=== PATIENT | male | born 1970 | race Caucasian/White ===

== ENCOUNTER 2017-08-26 19:32 | Emergency (ER) | payer BC, MEDICAID ==
--- NOTE | 2017-08-26 20:25 | ED Physician Documentation ---
PD HPI CHEST PAIN - Stated complaint Stated Complaint: CP/SOA/ L ARM NUMB - Chief complaint Chief Complaint: Cardiac - History obtained from History obtained from: Patient, Family - History of Present Illness Timing - onset: Today Timing - details: Gradual onset, Still present, Intermittant Quality: Pressure Radiation: Left upper extremity Worsened by: Inspiration. No: Exertion Similar symptoms before: Has not had sx before Recently seen: Not recently seen - Additional information Additional information: Patient is a 47 year old male with no significant past medical history who is presenting to the emergency department for chest pain. patinet states that earlier in the day the pain started in his throat and he was having difficulty swallowing. Patient states that the pain proceeded downwards to his chest and epigastric region. Patient states that it is slightly worse with breathing but denies any exertional component. Review of Systems Constitutional: denies: Fever, Chills Eyes: reports: Reviewed and negative Throat: reports: Sore throat Cardiac: reports: Chest pain / pressure. denies: Palpitations Respiratory: denies: Cough GI: reports: Abdominal Pain, Nausea. denies: Vomiting : denies: Dysuria, Frequency Neurologic: denies: Generalized weakness, Focal weakness Immunocompromised: denies: Immunocompromised PD PAST MEDICAL HISTORY - Past Medical History Cardiovascular: None Respiratory: Pneumonia, Other Neuro: Other Endocrine/Autoimmune: None GI: Diverticulitis : None HEENT: Chronic vision loss Psych: None Musculoskeletal: None Derm: None Other Past Medical History: Trigeminal neuralgia - Past Surgical History Past Surgical History: Yes General: Appendectomy - Present Medications Home Medications: Ambulatory Orders Medication Instructions Recorded Confirmed Ibuprofen [Advil] 2 mg PO DAILY 11/17/14 12/03/14 - Allergies Allergies/Adverse Reactions: Allergies Allergy/AdvReac Type Severity Reaction Status Date / Time Lvedgfl-Vhi-Ith Reductase AdvReac Unknown Verified 11/17/14 23:08 Inhibitor nakia AdvReac Unknown Unknown Uncoded 11/30/14 14:25 - Social History Does the pt smoke?: No Smoking Status: Never smoker Does the pt drink ETOH?: Yes Does the pt have substance abuse?: No - Immunizations Immunizations are current?: No - POLST Patient has POLST: No PD ED PE NORMAL - Vitals Vital signs reviewed: Yes - General General: Alert and oriented X 3 - Cardiac Cardiac: RRR, No murmur - Respiratory Respiratory: No respiratory distress, Clear bilaterally - Abdomen Abdomen: Soft, Non distended - Derm Derm: Normal color, Warm and dry - Extremities Extremities: No deformity, No tenderness to palpate - Neuro Neuro: Alert and oriented X 3 Eye Opening: Spontaneous Motor: Obeys Commands Verbal: Oriented GCS Score: 15 PD ED PE EXPANDED - General General: Anxious Results - Vitals Vitals: Vital Signs - 24 hr 08/26/17 19:41 Temperature 36.2 C L Heart Rate 103 H Respiratory 25 H Rate Blood Pressure 173/93 H O2 Saturation 98 Oxygen O2 Source Room air - EKG (time done) 1945 Rate: Rate (enter#) (96) Rhythm: NSR [place]: Normal Intervals: Normal ID QRS: Poor R wave progression Compare to prior EKG: Old EKG unavailable - Labs Labs: Laboratory Tests 08/26/17 08/26/17 08/26/17 20:05 20:21 20:21 WBC 11.8 H RBC 4.82 Hgb 15.6 Hct 44.3 MCV 91.8 MCH 32.3 H MCHC 35.2 RDW 13.1 Plt Count 169 MPV 8.0 Neut # (Auto) 9.9 H Lymph # (Auto) 1.0 L [place] # (Auto) 0.8 Eos # (Auto) 0.0 Baso # (Auto) 0.0 Absolute Nucleated RBC 0.00 Nucleated RBC % 0.0 D-Dimer < 200.0 L Sodium 137 Potassium 3.5 Chloride 105 Carbon Dioxide 22 Anion Gap 10.0 BUN 13 Creatinine 0.9 Estimated GFR (MDRD) 90 Glucose 111 H Calcium 9.3 Total Bilirubin 0.7 AST 31 ALT 64 H Alkaline Phosphatase 75 Troponin I B-Natriuretic Peptide Total Protein 8.3 H Albumin 4.3 Globulin 4.0 Albumin/Globulin Ratio 1.1 Lipase 32 08/26/17 08/26/17 20:21 20:21 WBC RBC Hgb Hct MCV MCH MCHC RDW Plt Count MPV Neut # (Auto) Lymph # (Auto) Cole # (Auto) Eos # (Auto) Baso # (Auto) Absolute Nucleated RBC Nucleated RBC % D-Dimer Sodium Potassium Chloride Carbon Dioxide Anion Gap BUN Creatinine Estimated GFR (MDRD) Glucose Calcium Total Bilirubin AST ALT Alkaline Phosphatase Troponin I < 0.04 B-Natriuretic Peptide 5 Total Protein Albumin Globulin Albumin/Globulin Ratio Lipase PD MEDICAL DECISION MAKING - ED course Complexity details: reviewed old records, reviewed results, re-evaluated patient , considered differential, d/w patient, d/w family ED course: Patient was seen and examined at bedside. ekg was performed and was within normal limits. IV access was gained and labs were drawn. chest x-ray was performed and was negative. Patient was treated with pepcid, maalox and viscous lidocaine with good relief. Patient's diagnostics including troponin and d-dimer were all negative. patient had a HEART score of 2 and was stable for discharge with outpatient follow up. - Sepsis Event Vital Signs: Vital Signs - 24 hr 08/26/17 19:41 Temperature 36.2 C L Heart Rate 103 H Respiratory 25 H Rate Blood Pressure 173/93 H O2 Saturation 98 Oxygen O2 Source Room air Departure - Departure Disposition: 01 Home, Self Care Clinical Impression: Atypical chest pain Condition: Good Instructions: ED Chest Pain NonCardiac Follow-Up: Kori Rodriguez PA-C [Primary Care Provider] - Within 3 Days Comments: Your diagnostics today were within normal limits. there are no indications that your symptoms are cardiac or pulmonary in nature. it is difficult to say what is causing your symptoms exactly, but it could be GERD or chest wall pain. You should follow up with your doctor if your symptoms persist. you should return to the emergency department at any time for new, worsening or uncontrollable symptoms.
[2017-08-26 20:29] LABS: BASOPHILS % (AUTO) 0.3 %; EOSINOPHILS % (AUTO) 0.2 %; HGB - HEMOGLOBIN 15.6 g/dL (14.0-18.0); LYMPHOCYTES % (AUTO) 8.4 %; MEAN CORPUSCULAR HEMOGLOBIN 32.3 pg (27.0-31.0); MEAN CORPUSCULAR HGB CONC 35.2 g/dL (32.0-36.0); MEAN CORPUSCULAR VOLUME 91.8 fL (80.0-94.0); MONOCYTES # (AUTO) 0.8 10^3/uL (0.0-1.0); MONOCYTES % (AUTO) 7.2 %; NEUTROPHILS # (AUTO) 9.9 10^3/uL (1.5-6.6); NEUTROPHILS % (AUTO) 83.9 %; PLT - PLATELET COUNT 169 10^3/uL (130-450); RED BLOOD COUNT 4.82 10^6/uL (4.70-6.10); RED CELL DISTRIBUTION WIDTH 13.1 % (12.0-15.0); WHITE BLOOD COUNT 11.8 x10^3/uL (4.8-10.8)
[2017-08-26 20:38] LABS: ALBUMIN 4.3 g/dL (3.2-5.5); ALBUMIN/GLOBULIN RATIO 1.1 (1.0-2.2); BILIRUBIN,TOTAL 0.7 mg/dL (0.2-1.0); CALCIUM 9.3 mg/dL (8.5-10.3); CREATININE 0.9 mg/dL (0.6-1.2); TOTAL PROTEIN 8.3 g/dL (6.7-8.2)
[2017-08-26] MEDS ORDERED: LIDOCAINE VISCOUS 2% 15 ML UDC MM STA (20:46)
[2017-08-26] MEDS ORDERED: MAG HYDROX/AL HYDROX/SIMETH 30 ML UDC PO STA (20:46)
[2017-08-26] MEDS ORDERED: FAMOTIDINE 20 MG TABLET PO STA (20:46)
[2017-08-26] MEDS ORDERED: SODIUM CHLORIDE 0.9% 1,000 ML IV ONE (20:58)
--- NOTE | 2017-08-26 21:20 | XRAY Report ---
Procedure Date: 08/26/2017 Accession Number: [id number] / [id number] Procedure: XR - Chest 2 View X-Ray CPT Code: 47042 FULL RESULT: EXAM: CHEST RADIOGRAPHY EXAM DATE: 08/26/2017 08:48 PM. CLINICAL HISTORY: Chest pain. COMPARISON: 11/18/2014 chest x-ray, abdomen CT. TECHNIQUE: 2 views. FINDINGS: Lungs/Pleura: There is an irregular, nodular right infrahilar opacity stable since 10/04/[address] most likely secondary to scarring. Otherwise no acute airspace disease. No pleural effusion or pneumothorax. Mediastinum: Heart and mediastinal contours are unremarkable. Other: None. IMPRESSION: Stable right infrahilar opacity most likely secondary to scarring. Otherwise no acute airspace disease. RADIA
[2017-08-26 21:59] VITALS: BP 131/81
== END 2017-08-26 21:58 | disposition home or self-care (01) ==
LOC: ED 19:32
DX: R07.89 Other chest pain (principal)
CPT/HCPCS: 36415; 71046; 80053; 83690; 83880; 84484; 85025; 85379; 93005; 96360; 99283; A9270

== ENCOUNTER 2017-08-27 10:52 | Emergency (ER) | payer MEDICAID ==
[2017-08-27] MEDS ORDERED: MAG HYDROX/AL HYDROX/SIMETH 30 ML UDC PO STA (11:14)
[2017-08-27] MEDS ORDERED: LIDOCAINE VISCOUS 2% 15 ML UDC MM STA (11:14)
[2017-08-27] MEDS ORDERED: PHENobarb/HYOSCY/ATROPINE/SCOP 5 ML UDC PO STA (11:14)
[2017-08-27] MEDS ORDERED: POTASS CIT/CITRIC ACID ORAL 1 EACH PACKET PO STA (11:20)
[2017-08-27 11:36] LABS: BASOPHILS % (AUTO) 0.4 %; EOSINOPHILS % (AUTO) 0.5 %; HGB - HEMOGLOBIN 14.8 g/dL (14.0-18.0); LYMPHOCYTES # (AUTO) 1.3 10^3/uL (1.5-3.5); LYMPHOCYTES % (AUTO) 22.8 %; MEAN CORPUSCULAR HEMOGLOBIN 32.6 pg (27.0-31.0); MEAN CORPUSCULAR HGB CONC 35.1 g/dL (32.0-36.0); MEAN CORPUSCULAR VOLUME 92.7 fL (80.0-94.0); MEAN PLATELET VOLUME 8.1 fL (7.4-11.4); MONOCYTES # (AUTO) 0.7 10^3/uL (0.0-1.0); MONOCYTES % (AUTO) 12.1 %; NEUTROPHILS # (AUTO) 3.6 10^3/uL (1.5-6.6); NEUTROPHILS % (AUTO) 64.2 %; PLT - PLATELET COUNT 153 10^3/uL (130-450); RED BLOOD COUNT 4.56 10^6/uL (4.70-6.10); WHITE BLOOD COUNT 5.6 x10^3/uL (4.8-10.8)
[2017-08-27 11:50] LABS: ALBUMIN 3.9 g/dL (3.2-5.5); ALBUMIN/GLOBULIN RATIO 1.1 (1.0-2.2); BILIRUBIN,TOTAL 1.1 mg/dL (0.2-1.0); CALCIUM 8.8 mg/dL (8.5-10.3); CREATININE 0.9 mg/dL (0.6-1.2); TOTAL PROTEIN 7.3 g/dL (6.7-8.2)
--- NOTE | 2017-08-27 12:06 | ED Physician Documentation ---
PD HPI CHEST PAIN - Stated complaint Stated Complaint: CHEST PX - Chief complaint Chief Complaint: Cardiac - History obtained from History obtained from: Patient, Family (spouse) - History of Present Illness Timing - onset: Last night Timing - onset during: Rest Timing - details: Waxing and waning Quality: Dull Location: Substernal Worsened by: Inspiration Recently seen: Emergency Dept (Last night.) - Additional information Additional information: The patient is a 47-year-old male who presents with substernal chest pain that started last night, was relieved with GI cocktail, but recurred this morning. He describes it as a dull pain that is worse with inspiration. It improves when he is standing upright. He denies associated nausea, vomiting, diaphoresis , cough, or fever. He denies history of similar symptoms in the past. He was seen in the emergency department last night for same. CXR and EKG revealed no acute abnormalities, and troponin was normal. His symptoms resolved with administration of a GI cocktail. He is concerned about the possibility of his symptoms being a manifestation of his trigeminal neuralgia. Review of Systems Constitutional: denies: Fever, Fatigue Nose: denies: Congestion Throat: denies: Sore throat Cardiac: reports: Chest pain / pressure. denies: Palpitations Respiratory: reports: Dyspnea (Pain is worse with inspiration.). denies: Cough GI: denies: Abdominal Pain, Nausea, Vomiting : denies: Dysuria Skin: denies: Rash Musculoskeletal: denies: Back pain, Extremity swelling Neurologic: denies: Headache PD PAST MEDICAL HISTORY - Past Medical History Cardiovascular: None Respiratory: Pneumonia, Other Neuro: Other Endocrine/Autoimmune: None GI: Diverticulitis : None HEENT: Chronic vision loss Psych: None Musculoskeletal: None Derm: None - Past Surgical History Past Surgical History: Yes General: Appendectomy - Present Medications Home Medications: Ambulatory Orders Medication Instructions Recorded Confirmed Ibuprofen [Advil] 2 mg PO DAILY 11/17/14 12/03/14 Lansoprazole [Prevacid] 30 mg PO DAILY #20 capsule. 08/27/17 - Allergies Allergies/Adverse Reactions: Allergies Allergy/AdvReac Type Severity Reaction Status Date / Time Iktnccg-Pza-Ahn Reductase AdvReac Unknown Verified 08/27/17 11:14 Inhibitor nakia AdvReac Unknown Unknown Uncoded 08/27/17 11:14 - Social History Does the pt smoke?: No Smoking Status: Never smoker Does the pt drink ETOH?: Yes Does the pt have substance abuse?: No - Immunizations Immunizations are current?: No - POLST Patient has POLST: No PD ED PE NORMAL - Vitals Vital signs reviewed: Yes (Initially hypertensive.) - General General: Alert and oriented X 3, Well developed/nourished - HEENT HEENT: Atraumatic - Neck Neck: No adenopathy, No JVD - Cardiac Cardiac: RRR, No murmur - Respiratory Respiratory: No respiratory distress, Clear bilaterally, Other (No chest wall tenderness to palpation.) - Abdomen Abdomen: Soft, No organomegaly, Other (Mild epigastric tenderness to palpation.) - Back Back: No CVA TTP - Derm Derm: No rash - Extremities Extremities: No edema, No calf tenderness / cord - Neuro Neuro: Alert and oriented X 3, No motor deficit, Normal speech Results - Vitals Vitals: Oxygen O2 Source Room air - EKG (time done) 10:58 Rate: Rate (enter#) (82) Rhythm: NSR [place]: Normal Intervals: Normal [place] Ischemia: ST elevation c/w repol Compare to prior EKG: Unchanged from prior EKG Computer interpretation: Agree with computer - Labs Labs: Laboratory Tests 08/27/17 08/27/17 08/27/17 11:30 11:30 11:30 WBC 5.6 RBC 4.56 L Hgb 14.8 Hct 42.3 MCV 92.7 MCH 32.6 H MCHC 35.1 RDW 13.0 Plt Count 153 MPV 8.1 Neut # (Auto) 3.6 Lymph # (Auto) 1.3 L [place] # (Auto) 0.7 Eos # (Auto) 0.0 Baso # (Auto) 0.0 Absolute Nucleated RBC 0.00 Nucleated RBC % 0.0 Sodium 133 L Potassium 3.9 Chloride 106 Carbon Dioxide 20 L Anion Gap 7.0 BUN 11 Creatinine 0.9 Estimated GFR (MDRD) 90 Glucose 98 Calcium 8.8 Total Bilirubin 1.1 H AST 26 ALT 55 Alkaline Phosphatase 60 Troponin I < 0.04 Total Protein 7.3 Albumin 3.9 Globulin 3.4 Albumin/Globulin Ratio 1.1 Lipase 31 PD MEDICAL DECISION MAKING - ED course Complexity details: reviewed old records, reviewed results, re-evaluated patient , considered differential, d/w patient, d/w family ED course: The patient's presentation is most consistent with gastroesophageal reflux. Repeat electrocardiogram and troponin are both negative, as expected given his clinical presentation. His symptoms do not suggest pneumonia, pneumothorax, or pulmonary embolus. Treatment in the emergency department included administration of GI cocktail, which again completely relieved his symptoms. I reassured him that there is no clinical likelihood that his symptoms are caused by the same herpes virus that is responsible for his trigeminal neuralgia. He is being discharged with a prescription for Prevacid. I discussed with him and his the diagnosis, symptomatic treatment and outpatient follow-up, as well as potentially worrisome signs or symptoms that should prompt reevaluation in the emergency department. - Sepsis Event Vital Signs: Oxygen O2 Source Room air Departure - Departure Disposition: 01 Home, Self Care Clinical Impression: GERD (gastroesophageal reflux disease) Qualifiers: Esophagitis presence: esophagitis presence not specified Qualified Code(s): K21.9 - Gastro-esophageal reflux disease without esophagitis Condition: Stable Instructions: ED GERD Follow-Up: Kori Rodriguez PA-C [Primary Care Provider] - Prescriptions: Lansoprazole [Prevacid] 30 mg PO DAILY #20 capsule. Comments: Minimize coffee and kelby. Take Prevacid daily as prescribed. You can use liquid antacid, such as Maalox or Mylanta, if you develop recurrent symptoms. Follow up with your primary physician within 1-2 weeks. Call to schedule appointment. Return to the emergency department if you develop increasing chest pain, shortness of breath, or otherwise worsening symptoms. Discharge Date/Time: 08/27/17 12:40
[2017-08-27 12:24] VITALS: BP 118/88
== END 2017-08-27 12:40 | disposition home or self-care (01) ==
LOC: ED 10:52
DX: K21.9 Gastro-esophageal reflux disease without esophagitis (principal); G50.0 Trigeminal neuralgia
CPT/HCPCS: 36415; 80053; 83690; 84484; 85025; 93005; 99283; 99284; A9270

== ENCOUNTER 2018-07-13 14:04 | Outpatient (CLI) | payer MEDICAID ==
--- NOTE | 2018-07-14 09:43 | XRAY Report ---
Reason: RIGHT SHOULDER PAIN W/ ABDUCTION OR FLEXION Procedure Date: 07/13/2018 Accession Number: [id number] / [id number] Procedure: XR - Shoulder 3 View RT CPT Code: FULL RESULT: EXAM: RIGHT SHOULDER RADIOGRAPHY EXAM DATE: 07/13/2018 02:38 PM. CLINICAL HISTORY: Right shoulder pain with abduction or flexion. No known injury. COMPARISON: None. TECHNIQUE: 3 views. FINDINGS: Bones: No fracture or bone lesion. Joints: There is mild diminishment of the acromiohumeral space; otherwise, the glenohumeral and acromioclavicular joints are within normal limits. Soft tissues: The visualized hemithorax is unremarkable. No soft tissue swelling or soft tissue calcification. IMPRESSION: Slight diminishment of the acromiohumeral space without significant degenerative changes in the glenohumeral space or AC joint, rotator cuff impingement cannot be excluded. If clinically warranted, recommend right shoulder MRI without IV contrast. RADIA
== END 2018-07-13 14:05 | disposition home or self-care (01) ==
LOC: DI 14:04
PROVIDERS: ATTEND Naturopath
DX: M25.511 Pain in right shoulder (principal)

== ENCOUNTER 2018-07-18 10:30 | Outpatient (CLI) | payer MEDICAID ==
[2018-07-18 18:22] LABS: BASOPHILS % (AUTO) 0.4 %; EOSINOPHILS # (AUTO) 0.1 10^3/uL (0.0-0.7); EOSINOPHILS % (AUTO) 1.5 %; HGB - HEMOGLOBIN 16.3 g/dL (14.0-18.0); LYMPHOCYTES # (AUTO) 1.6 10^3/uL (1.5-3.5); LYMPHOCYTES % (AUTO) 41.2 %; MEAN CORPUSCULAR HEMOGLOBIN 31.9 pg (27.0-31.0); MEAN CORPUSCULAR HGB CONC 34.5 g/dL (32.0-36.0); MEAN CORPUSCULAR VOLUME 92.5 fL (80.0-94.0); MEAN PLATELET VOLUME 8.7 fL (7.4-11.4); MONOCYTES # (AUTO) 0.3 10^3/uL (0.0-1.0); MONOCYTES % (AUTO) 8.4 %; NEUTROPHILS # (AUTO) 1.9 10^3/uL (1.5-6.6); NEUTROPHILS % (AUTO) 48.5 %; PLT - PLATELET COUNT 176 10^3/uL (130-450); RED CELL DISTRIBUTION WIDTH 13.2 % (12.0-15.0); WHITE BLOOD COUNT 3.8 x10^3/uL (4.8-10.8)
[2018-07-18 18:32] LABS: BILIRUBIN,URINE NEGATIVE (NEGATIVE); GLUCOSE, URINE (UA) NEGATIVE (NEGATIVE); KETONES,URINE (UA) NEGATIVE (NEGATIVE); LEUKOCYTE ESTERASE, URINE NEGATIVE (NEGATIVE); NITRITE,URINE NEGATIVE (NEGATIVE); OCCULT BLOOD,URINE NEGATIVE (NEGATIVE); PH,URINE 5.5 PH (5.0-7.5); PROTEIN,URINE NEGATIVE (NEGATIVE); UROBILINOGEN,URINE 0.2 (NORMAL) E.U./dL (NORMAL)
[2018-07-18 18:38] LABS: ALBUMIN 4.7 g/dL (3.2-5.5); ALBUMIN/GLOBULIN RATIO 1.3 (1.0-2.2); ALKALINE PHOSPHATASE 72 IU/L (42-121); ALT ALANINE AMINOTRANSFERASE 57 IU/L (10-60); AST ASPARTATE AMINOTRANSFERASE 28 IU/L (10-42); BILIRUBIN,TOTAL 0.8 mg/dL (0.2-1.0); BUN - BLOOD UREA NITROGEN 12 mg/dL (6-20); CALCIUM 9.5 mg/dL (8.5-10.3); CARBON DIOXIDE - CO2 23 mmol/L (21-32); CHLORIDE 106 mmol/L (101-111); CHOL/HDL RATIO 4.8 (<5.0); CHOLESTEROL 257 mg/dL; CREATININE 0.9 mg/dL (0.6-1.2); GAMMA GLUTAMYL TRANSPEPTIDASE 42 IU/L (8-55); GFR - MDRD 90 (>89); GLUCOSE 95 mg/dL (70-100); HDL CHOLESTEROL 53 mg/dL; LDL CHOLESTEROL,CALCULATED 173 mg/dL; LDL/HDL RATIO 3.3 (<3.6); SODIUM 141 mmol/L (135-145); TOTAL PROTEIN 8.3 g/dL (6.7-8.2); VLDL CHOLESTEROL 31 mg/dL
[2018-07-18 18:44] LABS: CLARITY,URINE CLOUDY (CLEAR); RBC,URINE 0-5 /HPF (0-5); SQUAMOUS EPITHELIAL CELL,UR RARE Squamous (<= Few)
[2018-07-18 18:45] LABS: AMORPHOUS SEDIMENT,UR Moderate /LPF; BACTERIA,URINE Few /HPF (None Seen)
[2018-07-18 18:49] LABS: T4 (THYROXINE) 7.37 ug/dL (6.09-12.23)
[2018-07-18 18:52] LABS: THYROID STIMULATING HORMONE 1.67 uIU/mL (0.34-5.60)
[2018-07-18 18:53] LABS: FREE T4 (FREE THYROXINE) 0.84 ng/dL (0.58-1.64)
[2018-07-18 18:58] LABS: FERRITIN 231.3 ng/mL (23.9-336.2); TOTAL T3 1.31 ng/mL (0.87-1.78)
[2018-07-18 19:06] LABS: HB2 TOTAL 17.6 g/dL; HEMOGLOBIN A1C 0.58 g/dL; HEMOGLOBIN A1C % 5.2 % (4.6-6.2)
[2018-07-19 10:52] LABS: HOMOCYSTEINE 11.8 umol/L (<11.4)
== END 2018-07-18 10:31 | disposition home or self-care (01) ==
LOC: LAB.F 10:30
PROVIDERS: ATTEND Naturopath
DX: Z00.01 Encounter for general adult medical examination with abnormal findings (principal); R03.0 Elevated blood-pressure reading, without diagnosis of hypertension; F33.1 Major depressive disorder, recurrent, moderate; E78.2 Mixed hyperlipidemia; R94.5 Abnormal results of liver function studies; R73.09 Other abnormal glucose; E66.09 Other obesity due to excess calories
CPT/HCPCS: 36415; 80053; 80061; 81001; 82626; 82728; 82977; 83036; 83090; 83721; 84436; 84439; 84443; 84480; 84481; 84482; 85025

== ENCOUNTER 2020-03-22 14:39 | Outpatient (CLI) | payer MEDICAID ==
--- NOTE | 2020-03-22 15:11 | XRAY Report ---
PROCEDURE: Chest 2 View X-Ray INDICATIONS: CHEST PAIN COUGH FOR 2+ TECHNIQUE: 2 view(s) of the chest. COMPARISON: None. FINDINGS: Surgical changes and devices: None. Lungs and pleura: No pleural effusions or pneumothorax. Lungs are clear. Mediastinum: Mediastinal contours are normal. Heart size is normal. Bones and chest wall: No suspicious bony abnormalities. Soft tissues appear unremarkable. IMPRESSION: No acute process. Reviewed by: Selam Rivera MD on 03/22/2020 3:10 PM [facility] Approved by: Selam Rivera MD on 03/22/2020 3:10 PM [facility] Station ID: [id number]
== END 2020-03-22 14:40 | disposition home or self-care (01) ==
LOC: DI.S 14:39
PROVIDERS: ATTEND Family Medicine
DX: R07.9 Chest pain, unspecified (principal); R05 Cough

== ENCOUNTER 2020-11-06 16:32 | Emergency (ER) | payer MEDICAID ==
[2020-11-06 16:41] VITALS: BP 184/116
--- NOTE | 2020-11-06 17:07 | ED Physician Documentation ---
PD HPI HEADACHE - Stated complaint Stated Complaint: HEAD PX/VISION LOSS - Chief complaint Chief Complaint: Neuro - History obtained from History obtained from: Patient - History of Present Illness Timing - onset: Today (about 9 am this morning, had onset of left eye visual blurring without vision loss, associated with some nausea and left sided headache.) Timing - onset during: Light activity Timing - details: Abrupt onset. No: Still present (his vision improved over couple of hours, and the headache has lessened (significant improvement over sissy rt period few hours after onset, then drifting less since. Minimal residual headache since then). No focal weaknesses.) Worst headache ever?: No: Worst headache ever? (has had similar headache severities in the past with migraines about once a year, but has not had the visual change associated in the past.) Location: Front, Left Quality: Throbbing, Aching. No: Thunderclap Associated symptoms: Nausea, Vision changes (left eye blurring/visual lattice look ("like looking through cut grapefruit"); no loss of vision.). No: Fever, Vomiting Improved by: Rest Worsened by: Light Contributing factors: Hypertension (mild, usually just upper normal.), Other (COVID vaccination in April.). No: Anticoagulated, Recent illness, Trauma Similar symptoms before: Diagnosis (has had migraines about once per year on average, but no prior visual changes with it. has had trigeminal neuralgia in the past, so not same area or type of pain.) Recently seen: Clinic (has been to PMD recently re: elevated cholesterol.) Review of Systems Constitutional: denies: Fever, Chills Eyes: reports: Decreased vision, Photophobia. denies: Loss of vision Nose: denies: Rhinorrhea / runny nose, Congestion Throat: denies: Sore throat Cardiac: denies: Chest pain / pressure, Palpitations Respiratory: denies: Cough GI: reports: Nausea. denies: Abdominal Pain, Vomiting, Diarrhea Skin: denies: Rash, Lesions Musculoskeletal: denies: Back pain Neurologic: reports: Headache (left sided today). denies: Focal weakness, Numbness PD PAST MEDICAL HISTORY - Past Medical History Past Medical History: Yes Cardiovascular: Hypertension Respiratory: Pneumonia, Other Neuro: Migraines, Other (trigeminal neuralgia) Endocrine/Autoimmune: None GI: Diverticulitis : None HEENT: Chronic vision loss Psych: None Musculoskeletal: None Derm: None - Past Surgical History Past Surgical History: Yes General: Appendectomy - Present Medications Home Medications: Ambulatory Orders Medication Instructions Recorded Confirmed Ibuprofen [Advil] 2 mg PO DAILY 11/17/14 12/03/14 Lansoprazole [Prevacid] 30 mg PO DAILY #20 capsule. 08/27/17 Ondansetron Odt [Zofran] 4 mg TL Q6H PRN #10 tablet 11/06/20 SUMAtriptan [Imitrex] 25 mg PO Q6H PRN #5 tablet 11/06/20 - Allergies Allergies/Adverse Reactions: Allergies Allergy/AdvReac Type Severity Reaction Status Date / Time Jilhraq-Nrw-Yyb Reductase AdvReac Unknown Verified 11/06/20 16:37 Inhibitor nakia AdvReac Unknown Unknown Uncoded 11/06/20 16:37 - Social History Does the pt smoke?: No Smoking Status: Never smoker Does the pt drink ETOH?: Yes Does the pt have substance abuse?: No - Immunizations Immunizations are current?: Yes Immunizations: TDAP current <10years - POLST Patient has POLST: No PD ED PE NORMAL - Vitals Vital signs reviewed: Yes - General General: Alert and oriented X 3, No acute distress, Well developed/nourished - HEENT HEENT: Atraumatic, PERRL, EOMI, Pharynx benign, Other (fundi appear normal. 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, No motor deficit, No sensory deficit, Normal speech Eye Opening: Spontaneous Motor: Obeys Commands Verbal: Oriented GCS Score: 15 - Psych Psych: Normal mood, Normal affect Results - Vitals Vitals: Vital Signs - 24 hr 11/06/20 16:37 Temperature 37.1 C Heart Rate 80 Respiratory 18 Rate Blood Pressure 184/116 H O2 Saturation 100 Oxygen O2 Source Room air - Labs Labs: Laboratory Tests 11/06/20 11/06/20 17:57 17:57 ESR 6 Sodium 139 Potassium 3.7 Chloride 103 Carbon Dioxide 24 Anion Gap 12.0 BUN 14 Creatinine 0.9 Estimated GFR (MDRD) 89 Glucose 93 Calcium 9.4 - Rads (name of study) head CT Radiology: Prelim report reviewed (normal), See rad report PD MEDICAL DECISION MAKING - ED course Complexity details: reviewed results, considered differential (No injury so not concussive and no fever or infectious symptoms. Do not see need for extensive lab tests nor LP. Add onset of headache left-sided which visual changes had some nausea this morning. Sounds reasonably vascular like migraine. He is concerned about clots etc. We can do a CT.), d/w patient Departure - Departure Disposition: 01 Home, Self Care Clinical Impression: Left-sided headache Migraine headache with aura Qualifiers: Status migrainosus presence: without status migrainosus Intractability: not intractable Qualified Code(s): G43.109 - Migraine with aura, not intractable, without status migrainosus Condition: Stable Record reviewed to determine appropriate education?: Yes Instructions: ED Headache Migraine Follow-Up: Nyla De La O ND [Primary Care Provider] - Prescriptions: SUMAtriptan [Imitrex] 25 mg PO Q6H PRN #5 tablet PRN Reason: Migraine Ondansetron Odt [Zofran] 4 mg TL Q6H PRN #10 tablet PRN Reason: Nausea / Vomiting Comments: This sounds likely to be a vascular/migraine headache given the character and symptoms of it. Your CT scan is good without any signs of tumor/bleeding/ clots/swelling. Tylenol ibuprofen if needed for pains. I would anticipate improvement in the next day or so. Or subsequent similar headaches he can try combination of ondansetron nausea medicine which will help with migraine as well, combined with sumatriptan tablet and Tylenol. That will often help relieve the symptoms within about 20 or 30 minutes. Transmitted the prescription to [facility] in [place].
[2020-11-06] MEDS ORDERED: SODIUM CHLORIDE 0.9% 1,000 ML IV STA (17:37)
[2020-11-06] MEDS ORDERED: KETOROLAC 15 MG/ML VIAL IVP STA (17:37)
[2020-11-06] MEDS ORDERED: IOPAMIDOL-300 100 ML VIAL ONE (18:00)
[2020-11-06 18:23] LABS: CALCIUM 9.4 mg/dL (8.5-10.3); CREATININE 0.9 mg/dL (0.6-1.2); POTASSIUM 3.7 mmol/L (3.5-5.0)
[2020-11-06] MEDS ORDERED: IOPAMIDOL-300 100 ML VIAL IVP ONE (18:58)
--- NOTE | 2020-11-06 19:02 | CT Report ---
PROCEDURE: HEAD W/WO INDICATIONS: left headache and visual change TECHNIQUE: 4.5 mm thick angled axial sections acquired from the foramen magnum to the vertex before and after th e administration of intravenous contrast. For radiation dose reduction, the following was used: aut omated exposure control, adjustment of mA and/or kV according to patient size. CONTRAST: IV CONTRAST: Isovue 300 ml: 100 PO CONTRAST: *NO PO CONTRAST COMPARISON: None. FINDINGS: Image quality: Excellent. CSF Spaces: Basal cisterns are patent. No extra-axial fluid collections. Ventricles are normal in size and shape. The dural venous sinuses demonstrate normal opacification with contrast material with out a filling defect identified. Brain: No midline shift. No acute intracranial hemorrhage or mass effect. No abnormal intracranial e nhancement. Mendiola-white interface appears normal. Skull and face: Calvarium and visualized facial bones appear intact, without suspicious lesions. Sinuses: Visualized sinuses and mastoids are clear. IMPRESSION: No acute intracranial abnormality. No signs of dural venous sinus thrombosis. Reviewed by: Angel Ty MD on 11/06/2020 7:00 PM PDT Approved by: Angel Ty MD on 11/06/2020 7:00 PM PDT Station ID: [id number]
== END 2020-11-06 19:15 | disposition home or self-care (01) ==
LOC: ED 16:32
DX: G43.109 Migraine with aura, not intractable, without status migrainosus (principal); I10 Essential (primary) hypertension
CPT/HCPCS: 36415; 70470; 80048; 85651; 96374; 99284; Q9967

== ENCOUNTER 2020-11-07 12:46 | Outpatient (CLI) | payer MEDICAID | END 2020-11-07 12:47 | disposition short-term general hospital (02) | LOC: EMS 12:46 | DX: R40.4 Transient alteration of awareness (principal) | CPT/HCPCS: A0425; A0427; A0999 ==

== ENCOUNTER 2021-01-02 17:11 | Outpatient (CLI) | payer MEDICAID ==
[2021-01-02 19:56] LABS: BASOPHILS % (AUTO) 0.2 %; EOSINOPHILS % (AUTO) 0.7 %; HCT - HEMATOCRIT 46.8 % (42.0-52.0); HGB - HEMOGLOBIN 15.6 g/dL (14.0-18.0); LYMPHOCYTES # (AUTO) 1.7 10^3/uL (1.5-3.5); LYMPHOCYTES % (AUTO) 29.6 %; MEAN CORPUSCULAR HEMOGLOBIN 30.8 pg (27.0-31.0); MEAN CORPUSCULAR HGB CONC 33.3 g/dL (32.0-36.0); MEAN CORPUSCULAR VOLUME 92.3 fL (80.0-94.0); MEAN PLATELET VOLUME 10.8 fL (7.4-11.4); MONOCYTES # (AUTO) 0.4 10^3/uL (0.0-1.0); MONOCYTES % (AUTO) 7.1 %; NEUTROPHILS # (AUTO) 3.6 10^3/uL (1.5-6.6); NEUTROPHILS % (AUTO) 62.2 %; PLT - PLATELET COUNT 174 10^3/uL (130-450); RED BLOOD COUNT 5.07 10^6/uL (4.70-6.10); RED CELL DISTRIBUTION WIDTH 12.9 % (12.0-15.0); WHITE BLOOD COUNT 5.8 x10^3/uL (4.8-10.8)
[2021-01-02 20:17] LABS: ALBUMIN 5.1 g/dL (3.2-5.5); ALBUMIN/GLOBULIN RATIO 1.5 (1.0-2.2); CALCIUM 9.5 mg/dL (8.5-10.3); POTASSIUM 3.9 mmol/L (3.5-5.0); TOTAL PROTEIN 8.6 g/dL (6.7-8.2)
== END 2021-01-02 17:12 | disposition home or self-care (01) ==
LOC: LAB.S 17:11
PROVIDERS: ATTEND Family Medicine
DX: I63.232 Cerebral infarction due to unspecified occlusion or stenosis of left carotid arteries (principal); E78.5 Hyperlipidemia, unspecified; R53.83 Other fatigue; E55.9 Vitamin D deficiency, unspecified; K75.81 Nonalcoholic steatohepatitis (NASH)
CPT/HCPCS: 36415; 80053; 82306; 85025

== ENCOUNTER 2021-07-31 13:04 | Outpatient (CLI) | payer MEDICAID ==
[2021-07-31 14:11] VITALS: BP 122/77
--- NOTE | 2021-07-31 14:11 | SLEEP CARE CONSULTATION ---
Information from patient questionnaire entered by Sean Roca MA. I have reviewed and concur with the information entered by Sean Roca MA. This document represents the service I personally performed and the decisions made by me, Sandy Sosa ARNP. History of Present Illness Service Date and Time: 07/31/2021 1304 Reason for Visit: New patient (ONSET 10/2020, ), Other (DR MACK, STROKE, ) Chief Complaint: reports: Fatigue, Other (Stroke) Date of Onset: Oct 2020 Usual bedtime: 11 PM Time it takes to fall asleep: 15 MINUTES Snores at night: No Observed to quit breathing while asleep: No Number of times waking at night: 1 Reasons for waking at night: reports: Bathroom, Other (CHANGE POSITION). denies: Choking, Snoring, Gasping for air Toss, Turn, or Twitch while sleeping: No Recalls having dreams: No (states he knows he has them) Usually gets out of bed at: [id number] Feels refreshed in the morning: Yes Morning headache: No Sleepy or fatigued during the day: Yes Ever fallen asleep while driving: No Takes day naps: No Dreams during day naps: No Prior sleep studies: No Additional HPI information: I had the pleasure of seeing ÁNGELA WILLAMS today regarding the possibility of him having a sleep disorder. His current complaints are fatigue and history of a stroke. Patient had a stroke November 07, 2020 and his health provider has sent him here for evaluation. He states he was for 25 years and she never complained about him snoring or told him he had pauses in breathing when asleep. He states he usually wakes up feeling rested but he does get fatigued through the day. He denies taking any naps. He denies choking or gasping for air waking him up. He denies waking up with headaches. He has lost about 50 pounds. - Parasomnia Symptoms Ever been unable to move upon waking from sleep: No Walks in sleep: No Talks in sleep: Yes Ever acted out dreams in sleep: No Ever felt weak in the knees when startled or emotional: No Bothered by creepy, crawly, restless sensations in legs: No Problems with memory or concentration: Yes (memory since his stroke) Subjective Initial [place] Sleepiness Scale score: 3 (07/31/2021) Past Medical History Past Medical History: reports: Stroke, Other (borderline Htn resolved with weight loss; high cholesterol, resolved) Social History The patient's occupation is a [employer]. Patient is and lives in . Have you smoked in the past 12 months: No Alcohol use: Yes Alcohol amount and frequency: 4 X WEEK, none currently Caffeine use: Yes Caffeine amount and frequency: 1X3 DAILY Family History Family history of sleep disordered breathing: No Allergies and Home Medications Known drug allergies: Yes (STATIN) Drug allergies reviewed: Yes Home medication list reviewed: Yes Allergy and home medication list: Allergies Tgqanrt-DVZ-IvW Reductase Inhibitor [Afxzycl-Nrx-Tlw Reductase Inhibitor] Adverse Reaction (Verified 11/06/20 16:37) Unknown HOT FLASHES.. nakia Adverse Reaction (Unknown, Uncoded 11/06/20 16:37) Unknown Lidocain and novacain take a long time to kick in." So he ends up getting too much by caregivers don't wait long enough. Medications: Atorvastatin 80 mg Propranolol 20 mg Aspirin Radha CoQ10 D3 Fish oil Review of Systems Weight loss over past 5 years: 50 lbs Neurological: reports: head trauma (Stroke per pt), disorientation, gait or balance problems Ear/Nose/Throat: denies: tonsillectomy Physical Exam Vital signs obtained and entered by: LE BERGMAN Blood Pressure: 122/77 (RESP 18, PULSE 92, LEFT,) Cuff size: wrist Heart Rate: 80 O2 Saturation: 97 Height: 6 ft Weight: 190 lb Body Mass Index: 25.7 BMI Classification: Overweight Neck circumference: 14 (INCHES) Mouth and throat: narrow oropharynx Soft palate: long Hard palate: arched Uvula: normal Uvula visualization: 25% Mallampati Class III Tongue: enlarged in size with teeth freire on lateral edges Tonsils: small Neck: normal w/o lymphadenopathy or thyromegaly Heart: regular rate and rhythm Lungs: clear bilaterally Impression and Plan 1. Suspected Obstructive Sleep Apnea-Hypopnea Syndrome, as suggested by a history of daytime fatigue and cognitive impairment due to cerebrovascular disease. Patient has history of stroke in October 2020. Narrow oropharynx and obesity are common predisposing factors for obstructive sleep apnea-hypopnea syndrome. I recommend proceeding to polysomnography to confirm the diagnosis and to assess severity. If the patient has significant sleep disordered breathing, a manual CPAP titration study will also be performed to find the optimal treatment pressure. I informed the patient of what the sleep studies involve and after some discussion, obtained agreement to proceed. The pathophysiology of obstructive sleep apnea-hypopnea syndrome was discussed with the patient and health risks of cardiovascular and cerebrovascular disease if not treated. Risks of drowsy driving discussed in detail and patient advised to avoid long distance driving and to seedling puller at the first sign of drowsiness. Patient agreed to plan. * Schedule polysomnography * Avoid long distance driving or driving when feeling sleepy. * Avoid alcohol, sedative and muscle relaxant around bedtime. * Attempt to lose weight. * Review instructions provided by trained office staff on how to prepare for the sleep study. * Return for follow-up after sleep study completed. Counseling Topics: Weight loss health impact Visit Type: In Office Time Spent with Patient (minutes): 30 Provider Statement: I spent 100% of the Face to Face Visit with the patient with greater than 50% spent counseling the patient and coordination of care.
== END 2021-07-31 13:05 | disposition home or self-care (01) ==
LOC: SC 13:04
PROVIDERS: ATTEND Nurse Practitioner Family
DX: R53.83 Other fatigue (principal); I69.319 Unspecified symptoms and signs involving cognitive functions following cerebral infarction
CPT/HCPCS: 99203; 99212

== ENCOUNTER 2021-08-08 19:38 | Outpatient (CLI) | payer MEDICAID | END 2021-08-08 19:39 | disposition home or self-care (01) | LOC: SC 19:38 | PROVIDERS: ATTEND Nurse Practitioner Family | DX: R53.83 Other fatigue (principal); Z86.73 Personal history of transient ischemic attack (TIA), and cerebral infarction without residual deficits | CPT/HCPCS: 95810 ==